=== PATIENT | female | born 1995 | race African-American/Black ===

== ENCOUNTER → 2017-11-22 | Outpatient (CLI) | payer OTHER ==
[2017-11-22 14:30] LABS: ADD MAN DIFF? NO
[2017-11-22 14:38] LABS: BASO % 1 % (0-3); EOS # 0.2 x10^3/uL (0.0-0.7); EOS % 3 % (0-3); HEMATOCRIT 39.4 % (36.0-47.0); HEMOGLOBIN 13.2 g/dL (12.0-15.5); LYMPH # 3.2 x10^3/uL (1.0-4.8); LYMPH % 47 % (24-48); MEAN CORPUSCULAR HEMOGLOBIN 32 pg (25-35); MEAN CORPUSCULAR HGB CONC 34 g/dL (31-37); MEAN CORPUSCULAR VOLUME 94 fL (79-100); MONO # 0.4 x10^3/uL (0.0-1.1); MONO % 7 % (0-9); NEUT # 2.9 x10^3uL (1.8-7.7); NEUT % 43 % (31-73); PLATELET COUNT 181 x10^3/uL (140-400); RED BLOOD COUNT 4.17 x10^6/uL (3.50-5.40); RED CELL DISTRIBUTION WIDTH 12.1 % (11.5-14.5); WHITE BLOOD COUNT 6.8 x10^3/uL (4.0-11.0)
== END | disposition home or self-care (01) ==
LOC: LAB 14:09
DX: D39.11 Neoplasm of uncertain behavior of right ovary (principal)
CPT/HCPCS: 36415; 85025

== ENCOUNTER → 2017-12-03 | Outpatient (CLI) | payer OTHER | END | disposition home or self-care (01) | LOC: US 13:18 | DX: N83.202 Unspecified ovarian cyst, left side (principal); Z85.43 Personal history of malignant neoplasm of ovary; Z90.721 Acquired absence of ovaries, unilateral | CPT/HCPCS: 76830; 76856 ==

== ENCOUNTER → 2018-11-08 | Outpatient (CLI) | payer OTHER ==
--- NOTE | 2018-11-08 13:58 | KCIC ---
Bone densitometry 11/08/2018 10:38 AM Indication: History of ovarian cancer. History of chemotherapy. Subsequent menopause. Comparison Study: None available. Discussion: Bone Densitometry was performed with dual photon absorption of the lumbar spine and left proximal femur Lumbar Spine: Bone average density is 1.261g/cm2 for L1-L4. T-Score is 1.9. Left proximal femur: Bone average density is 1.034g/cm2. T-Score is 0.8. IMPRESSION: Normal bone mineral density Note: Definitions established by the World Health Organization: Normal: T-score is -1.0 or above. Osteopenia: T-score is between -1.0 and -2.5. Osteoporosis: T-score is -2.5 or below. Electronically signed by: Wally Purcell MD (11/08/2018 1:54 PM) [id number]
== END | disposition home or self-care (01) ==
LOC: KCIC DEXA 10:03
PROVIDERS: ATTEND Obstetrics & Gynecology Gynecologic Oncology
DX: D39.11 Neoplasm of uncertain behavior of right ovary (principal); N95.1 Menopausal and female climacteric states; Z85.43 Personal history of malignant neoplasm of ovary; Z92.21 Personal history of antineoplastic chemotherapy
CPT/HCPCS: 77080

== ENCOUNTER → 2018-11-08 | Outpatient (CLI) | payer OTHER ==
--- NOTE | 2018-11-08 16:36 | RAD ---
Examination: Whole body bone scan HISTORY: History of ovarian cancer for 2 years COMPARISON: None available TECHNIQUE: 25 mCi of technetium 99m MDP was injected IV and anterior and posterior whole body bone scan was performed FINDINGS: There is faint radiotracer uptake identified in the proximal sternum probably degenerative. There is no suspicious focal radiotracer uptake identified to suggest osteoblastic skeletal metastasis. IMPRESSION: No evidence of osteoblastic skeletal metastasis. Electronically signed by: Young Power MD (11/08/2018 4:32 PM) [place] [id number]
== END | disposition home or self-care (01) ==
LOC: NM 09:26
PROVIDERS: ATTEND Obstetrics & Gynecology Gynecologic Oncology
DX: D39.11 Neoplasm of uncertain behavior of right ovary (principal)
CPT/HCPCS: 78306; 96374; A9503